=== PATIENT | male | born 1955 | race Hispanic/Latino ===

== ENCOUNTER 2017-11-08 11:42 | Emergency (ER) | payer OTHER ==
[~2017-11-08 11:42] MED LIST: ASPI-1197 PO; CALC600T12 PO; CHOL100040 PO; FENT-77 TD; LISI1TAB11 PO; METO25TA6 PO; MULT-60 PO; SIMV10TA6 PO; TYL3B PO
[2017-11-08] MEDS ORDERED: ONDANSETRON HCL 4 MG/2 ML VIAL ONE (12:10)
[2017-11-08] MEDS ORDERED: MORPHINE SULFATE 4 MG/1ML SYG ONE (12:10)
== END 2017-11-08 15:15 | disposition home or self-care (01) ==
LOC: EDH 11:42
DX: M54.2 Cervicalgia (principal); R07.89 Other chest pain; M25.512 Pain in left shoulder; J44.9 Chronic obstructive pulmonary disease, unspecified; I10 Essential (primary) hypertension; G89.29 Other chronic pain; M54.9 Dorsalgia, unspecified; V49.49XA Driver injured in collision with other motor vehicles in traffic accident, initial encounter; Y93.89 Activity, other specified; Y92.89 Other specified places as the place of occurrence of the external cause; Y99.8 Other external cause status
CPT/HCPCS: 70450; 71250; 72125; 72170; 73030; 96374; 96375; 99284; J2270; J2405

== ENCOUNTER 2017-12-29 14:46 | Inpatient (IN) | payer OTHER ==
[~2017-12-29] VITALS: Ht 177.8 cm; Wt 91.8 kg
[2017-12-29] MEDS ORDERED: ACETAMINOPHEN 325 MG TAB ONE (15:29)
[2017-12-29 15:36] LABS: BASOPHILS % (AUTO) 0.6 % (0.0-5.0); EOSINOPHILS % (AUTO) 0.8 % (0.0-8.0); HEMATOCRIT 40.9 % (42-54); LYMPHOCYTES % (AUTO) 11.4 % (21.0-51.0); MEAN CORPUSCULAR HEMOGLOBIN 30.1 pg (27.0-33.0); MEAN CORPUSCULAR HGB CONC 33.8 g/dL (32.0-36.0); MEAN CORPUSCULAR VOLUME 89.1 fL (79-99); NEUTROPHILS % (AUTO) 81.2 % (40.0-77.0); PLATELET COUNT (AUTO) 225 K/uL (130-400); RED BLOOD CELL COUNT(AUTO) 4.59 MIL/uL (4.50-6.20); RED CELL DISTRIBUTION WIDTH 15.9 % (11.0-15.5); WHITE BLOOD COUNT (AUTO) 13.3 K/uL (4.8-10.8)
[2017-12-29 15:49] LABS: CREATININE 1.1 mg/dL (0.5-1.5); POTASSIUM 3.7 mmol/L (3.5-5.1)
[2017-12-29 15:53] LABS: ALBUMIN 3.8 g/dL (3.5-5.0); BILIRUBIN,TOTAL 0.5 mg/dL (0.2-1.0); TOTAL PROTEIN, SERUM 7.6 g/dL (6.0-8.3)
[2017-12-29 16:02] LABS: APPEARANCE,URINE Clear (CLEAR); BILIRUBIN,URINE Negative (NEGATIVE); COLOR,URINE Yellow (YELLOW); GLUCOSE, URINE (UA) Negative (NEGATIVE); KETONES,URINE Negative (NEGATIVE); LEUKOCYTE ESTERASE ,URINE Negative (NEGATIVE); NITRATE,URINE Negative (NEGATIVE); OCCULT BLOOD,URINE Negative (NEGATIVE); PROTEIN,URINE POS 2+ (NEGATIVE)
[2017-12-29 16:22] LABS: BACTERIA,URINE None Seen /HPF (None Seen); RBC,URINE None Seen /HPF (0-1); SQUAMOUS EPITHELIAL CELL,UR 0-2 /LPF (0-2); WBC,URINE None Seen /HPF (0-1)
[2017-12-29] MEDS ORDERED: CEFTRIAXONE SODIUM 1 GM ONE (17:33)
[2017-12-29] MEDS ORDERED: AZITHROMYCIN 250 MG TABLET PO ONE (17:34)
[2017-12-29] MEDS ORDERED: IPRATROPIUM/ALBUTEROL SULFATE 3 ML SOLUTION IH ONE (19:50)
[2017-12-29] MEDS ORDERED: ONDANSETRON HCL 4 MG/2 ML VIAL IVP PRN (20:15)
[2017-12-29] MEDS ORDERED: LACTULOSE 20 GM/30 ML UDCUP PO PRN (20:15)
[2017-12-29] MEDS ORDERED: CLONIDINE HCL 0.1 MG TABLET PO PRN (20:15)
[2017-12-29] MEDS ORDERED: ACETAMINOPHEN 325 MG TAB PO PRN ×2 (20:15)
[2017-12-29] MEDS ORDERED: DOXYCYCLINE 100MG+NS 250ML 250 ML IV ONE (21:55)
[2017-12-29] MEDS: IPRATROPIUM/ALBUTEROL SULFATE 3 ML SOLUTION IH SCH (22:44)
[2017-12-30] MEDS ORDERED: ACETAMINOPHEN 325 MG TAB ONE ×3 (01:58→15:09)
[2017-12-30] MEDS: IPRATROPIUM/ALBUTEROL SULFATE 3 ML SOLUTION IH SCH ×6 (02:17→22:15)
[2017-12-30 05:08] LABS: BASOPHILS % (AUTO) 0.3 % (0.0-5.0); EOSINOPHILS % (AUTO) 0.1 % (0.0-8.0); HEMATOCRIT 39.3 % (42-54); LYMPHOCYTES % (AUTO) 11.8 % (21.0-51.0); MEAN CORPUSCULAR HEMOGLOBIN 30.6 pg (27.0-33.0); MEAN CORPUSCULAR HGB CONC 34.2 g/dL (32.0-36.0); MEAN CORPUSCULAR VOLUME 89.5 fL (79-99); NEUTROPHILS % (AUTO) 79.8 % (40.0-77.0); NUCLEATED RED BLOOD CELLS 0.1 % (0.0-0.19); PLATELET COUNT (AUTO) 212 K/uL (130-400); RED BLOOD CELL COUNT(AUTO) 4.39 MIL/uL (4.50-6.20); WHITE BLOOD COUNT (AUTO) 13.6 K/uL (4.8-10.8)
[2017-12-30 05:27] LABS: CREATININE 1.1 mg/dL (0.5-1.5); POTASSIUM 3.6 mmol/L (3.5-5.1)
[2017-12-30 09:47] VITALS: BP 141/69
[2017-12-30] MEDS ORDERED: DOXYCYCLINE 100MG+NS 250ML 250 ML IV ONE (13:07)
[2017-12-30] MEDS ORDERED: DEXTROSE 50%-WATER 50 ML DISP.SYRIN IV PRN (17:30)
[2017-12-30] MEDS ORDERED: NITROGLYCERIN 0.4 MG SL TAB SL PRN (17:30)
[2017-12-30] MEDS ORDERED: LIDOCAINE HCL-MPF 1% 2ML VIAL IJ PRN (17:30)
[2017-12-30] MEDS ORDERED: POTASSIUM CHLORIDE 10% ELIXIR 20 MEQ/15 ML UDCUP PO PRN (17:30)
[2017-12-30] MEDS ORDERED: POTASSIUM CHLORIDE 20MEQ/100ML 100 ML IV PRN (17:30)
[2017-12-30] MEDS ORDERED: GLUCAGON 1MG KIT 1 MG ML IM PRN (17:30)
[2017-12-30] MEDS ORDERED: POTASSIUM CHLORIDE 20 MEQ ERTAB PO PRN (17:30)
[2017-12-30] MEDS ORDERED: GUAIFENESIN-DM 200/20 MG 10 ML PO PRN (17:30)
[2017-12-30] MEDS ORDERED: INSULIN R NPO SS1 SQ SCH (18:00)
[2017-12-30] MEDS ORDERED: IPRATROPIUM/ALBUTEROL SULFATE 3 ML SOLUTION IH SCH (18:00)
[2017-12-30] MEDS ORDERED: ONDANSETRON HCL MDV 20ML 2 MG/ML VIAL IVP PRN (19:00)
[2017-12-30 19:58] VITALS: BP 121/72
[2017-12-30] MEDS: DOXYCYCLINE 100MG+NS 250ML 250 ML IV SCH (20:08)
[2017-12-30] MEDS: METHYLPREDNISOLONE SOD SUCC 40MG/ML 1ML IVP SCH (20:08)
[2017-12-30] MEDS ORDERED: INSULIN R PO SSI SQ SCH (21:00)
[2017-12-31] VITALS: BP 143/85
[2017-12-31] MEDS: IPRATROPIUM/ALBUTEROL SULFATE 3 ML SOLUTION IH SCH ×6 (01:55→22:04)
[2017-12-31 04:00] VITALS: BP 131/71
[2017-12-31 04:52] LABS: HEMATOCRIT 39.3 % (42-54); MEAN CORPUSCULAR HGB CONC 33.5 g/dL (32.0-36.0); MEAN CORPUSCULAR VOLUME 89.4 fL (79-99); PLATELET COUNT (AUTO) 220 K/uL (130-400); RED BLOOD CELL COUNT(AUTO) 4.39 MIL/uL (4.50-6.20); WHITE BLOOD COUNT (AUTO) 7.9 K/uL (4.8-10.8)
[2017-12-31 05:03] LABS: CREATININE 1.2 mg/dL (0.5-1.5)
[2017-12-31] MEDS: METHYLPREDNISOLONE SOD SUCC 40MG/ML 1ML IVP SCH (08:04)
[2017-12-31] MEDS: DOXYCYCLINE 100MG+NS 250ML 250 ML IV SCH ×2 (08:04→21:19)
[2017-12-31 08:05] VITALS: BP 139/76
[2017-12-31 11:00] VITALS: BP 142/71
[2017-12-31 16:00] VITALS: BP 153/90
[2017-12-31 20:00] VITALS: BP 148/78
[2018-01-01] VITALS (7 sets, daily range): BP systolic 122–149; BP diastolic 63–85
[2018-01-01] MEDS: IPRATROPIUM/ALBUTEROL SULFATE 3 ML SOLUTION IH SCH ×6 (02:21→21:59)
[2018-01-01] MEDS: PREDNISONE 20 MG TABLET PO SCH (07:43)
[2018-01-01] MEDS: DOXYCYCLINE 100MG+NS 250ML 250 ML IV SCH ×2 (07:44→21:53)
[2018-01-02] MEDS: IPRATROPIUM/ALBUTEROL SULFATE 3 ML SOLUTION IH SCH ×2 (02:02→06:46)
[2018-01-02 04:00] VITALS: BP 136/85
[2018-01-02] MEDS: PREDNISONE 20 MG TABLET PO SCH (07:40)
[2018-01-02] MEDS: DOXYCYCLINE 100MG+NS 250ML 250 ML IV SCH (07:40)
[2018-01-02 08:00] VITALS: BP 142/94
== END 2018-01-02 11:35 | disposition home or self-care (01) | DRG 191 ==
LOC: EDH 14:46 → EDHIP 17:15 → OBSVTOIN 17:15 → 3CH 12-30 16:35
PROVIDERS: ADMIT Family Medicine; ATTEND Family Medicine
DX: J44.1 Chronic obstructive pulmonary disease with (acute) exacerbation (principal); J96.10 Chronic respiratory failure, unspecified whether with hypoxia or hypercapnia; Z99.81 Dependence on supplemental oxygen; Z85.118 Personal history of other malignant neoplasm of bronchus and lung; E78.5 Hyperlipidemia, unspecified; I10 Essential (primary) hypertension; E66.9 Obesity, unspecified; D72.829 Elevated white blood cell count, unspecified; G47.33 Obstructive sleep apnea (adult) (pediatric); I25.10 Atherosclerotic heart disease of native coronary artery without angina pectoris; G89.29 Other chronic pain; M54.9 Dorsalgia, unspecified; Z68.29 Body mass index [BMI] 29.0-29.9, adult; Z87.891 Personal history of nicotine dependence; Z92.21 Personal history of antineoplastic chemotherapy; Z92.3 Personal history of irradiation; Z95.1 Presence of aortocoronary bypass graft; Z88.8 Allergy status to other drugs, medicaments and biological substances
CPT/HCPCS: 36415; 71046; 71250; 80048; 80053; 81001; 83605; 83880; 84484; 85025; 85027; 87040; 87804; 93005; 94640; 94664; J0696; J2920; J3490

== ENCOUNTER 2019-03-30 16:02 | Inpatient (IN) | payer OTHER ==
[~2019-03-30] VITALS: Ht 177.8 cm; Wt 107.3 kg
[~2019-03-30 16:02] MED LIST changes: -ALBU8.5H8 IH; -APIX5TAB PO; -ASPI-555 PO; -CHOL200074 PO; -FINA5TAB41 PO; -FLUT1BLS3 IH; -FURO20TA4 PO; -MULT-1192 PO; -POTA-79 PO; -TAMS-1 PO; -moringa PO
[2019-03-30 16:44] LABS: BASOPHILS % (AUTO) 0.7 % (0.0-5.0); HEMATOCRIT 40.5 % (42-54); LYMPHOCYTES % (AUTO) 24.5 % (21.0-51.0); MEAN CORPUSCULAR HEMOGLOBIN 31.7 pg (27.0-33.0); MEAN CORPUSCULAR HGB CONC 34.3 g/dL (32.0-36.0); MEAN CORPUSCULAR VOLUME 92.4 fL (79-99); MONOCYTES % (AUTO) 8.9 % (3.0-13.0); NEUTROPHILS % (AUTO) 60.9 % (40.0-77.0); NUCLEATED RED BLOOD CELLS 0.1 % (0.0-0.19); PLATELET COUNT (AUTO) 258 K/uL (130-400); RED BLOOD CELL COUNT(AUTO) 4.38 MIL/uL (4.50-6.20); RED CELL DISTRIBUTION WIDTH 13.7 % (11.0-15.5); WHITE BLOOD COUNT (AUTO) 5.8 K/uL (4.8-10.8)
[2019-03-30 16:58] LABS: POTASSIUM 3.4 mmol/L (3.5-5.1)
[2019-03-30 17:00] LABS: INR 0.95 (0.85-1.15); PARTIAL THROMBOPLASTIN TIME 26.4 SEC (26.3-35.5)
[2019-03-30 17:04] LABS: ALBUMIN 4.1 g/dL (3.5-5.0); BILIRUBIN,TOTAL 0.4 mg/dL (0.2-1.0); TOTAL PROTEIN, SERUM 7.4 g/dL (6.0-8.3)
[2019-03-30] MEDS ORDERED: ENOXAPARIN SODIUM 100 MG/1 ML SQ ONE (18:00)
[2019-03-30] MEDS ORDERED: POTASSIUM CHLORIDE 20MEQ/100ML 100 ML IV PRN (18:45)
[2019-03-30] MEDS ORDERED: ONDANSETRON HCL 4 MG/2 ML VIAL IV PRN (18:45)
[2019-03-30] MEDS ORDERED: LIDOCAINE HCL-MPF 1% 2ML VIAL IVP PRN (18:45)
[2019-03-30] MEDS ORDERED: HYDROCODONE/ACETAMINOPHEN 5/325 MG TAB PO PRN (18:45)
[2019-03-30] MEDS ORDERED: POTASSIUM CHLORIDE 10% ELIXIR 20 MEQ/15 ML UDCUP PO PRN (18:45)
[2019-03-30] MEDS ORDERED: NITROGLYCERIN 0.4 MG SL TAB SL PRN (18:45)
[2019-03-30] MEDS ORDERED: MAGNESIUM 2GM PREMIX 50ML 50 ML IV PRN (18:45)
[2019-03-30] MEDS ORDERED: ACETAMINOPHEN 325 MG TAB PO PRN ×2 (18:45)
[2019-03-30 20:40] VITALS: BP 139/85
--- NOTE | 2019-03-30 20:45 | NUR ---
ADDENDUM TO ASS. BILATERAL LE'S WITH PRONOUNCED HYPERPIGMENTED AREAS COVERING DISTAL 2/3RDS OF BOTH LOWER EXTREMITIES WITH MARKED EDEMA ,RIGHT GREATER THAN LEFT (3+ LEFT),(2+RIGHT)PITTING EDEMA. PT STATES INTERMITTENT CRAMPING ,NUMBNESS AND THROBBING PAIN TO LEFT LE, DRY LESIONS ,SCAB FORMATION NOTED LOWER 1/3 LE POSTERIORLY Addendum: 03/31/19 at 0058 by NICOLASA TRAYLOR RN RN Amended: Links added.
[2019-03-30] MEDS: FAMOTIDINE 20MG TAB 20 MG TAB PO SCH (20:57)
[2019-03-30] MEDS ORDERED: ENOXAPARIN SODIUM 1 MG/KG SQ SCH (21:00)
--- NOTE | 2019-03-30 21:37 | NUR ---
Pt and stated he wears a Cpap at home but when asked if wanted to use one of ours, he informed me that he would rather forego the Cpap tonight and use his own tomorrow when they bring it in the morning.
[2019-03-31] VITALS: BP 115/67
[2019-03-31] MEDS: POTASSIUM CHLORIDE 20 MEQ ERTAB PO PRN ×2 (00:10→02:31)
[2019-03-31 04:00] VITALS: BP 118/70
[2019-03-31 04:36] LABS: INR 0.98 (0.85-1.15); PARTIAL THROMBOPLASTIN TIME 28.7 SEC (26.3-35.5); PROTHROMBIN TIME 10.3 SEC (9.6-11.6)
[2019-03-31 04:37] LABS: BASOPHILS % (AUTO) 0.8 % (0.0-5.0); EOSINOPHILS % (AUTO) 5.4 % (0.0-8.0); HEMATOCRIT 38.4 % (42-54); LYMPHOCYTES % (AUTO) 25.6 % (21.0-51.0); MEAN CORPUSCULAR HEMOGLOBIN 30.7 pg (27.0-33.0); MEAN CORPUSCULAR HGB CONC 33.4 g/dL (32.0-36.0); MEAN CORPUSCULAR VOLUME 92.1 fL (79-99); MONOCYTES % (AUTO) 9.1 % (3.0-13.0); NEUTROPHILS % (AUTO) 59.1 % (40.0-77.0); NUCLEATED RED BLOOD CELLS 0.1 % (0.0-0.19); PLATELET COUNT (AUTO) 262 K/uL (130-400); RED BLOOD CELL COUNT(AUTO) 4.17 MIL/uL (4.50-6.20); RED CELL DISTRIBUTION WIDTH 13.7 % (11.0-15.5)
[2019-03-31 04:45] LABS: ALBUMIN 3.3 g/dL (3.5-5.0); BILIRUBIN,TOTAL 0.3 mg/dL (0.2-1.0); CREATININE 0.9 mg/dL (0.5-1.5); POTASSIUM 3.9 mmol/L (3.5-5.1); TOTAL PROTEIN, SERUM 6.1 g/dL (6.0-8.3)
[2019-03-31 08:00] VITALS: BP 130/80
[2019-03-31] MEDS: FAMOTIDINE 20MG TAB 20 MG TAB PO SCH ×2 (10:36→20:30)
[2019-03-31] MEDS: ENOXAPARIN SODIUM 100 MG/1 ML SQ SCH ×2 (10:37→20:31)
[2019-03-31] MEDS ORDERED: CHOL200074 PO (11:07)
[2019-03-31] MEDS ORDERED: TAMS-1 PO (11:07)
[2019-03-31] MEDS ORDERED: ASPI-555 PO (11:07)
[2019-03-31] MEDS ORDERED: FINA5TAB41 PO (11:07)
[2019-03-31] MEDS ORDERED: FLUT1BLS3 IH (11:07)
[2019-03-31] MEDS ORDERED: POTA-79 PO (11:07)
[2019-03-31] MEDS ORDERED: ALBU8.5H8 IH (11:07)
[2019-03-31] MEDS ORDERED: MULT-1192 PO (11:07)
[2019-03-31] MEDS ORDERED: moringa PO (11:07)
[2019-03-31] MEDS ORDERED: FURO20TA4 PO (11:07)
[2019-03-31 12:00] VITALS: BP 131/72
[2019-03-31 16:00] VITALS: BP 135/83
--- NOTE | 2019-03-31 16:00 | NUR ---
PAGED DR. MONTE SHEERIF TO VERIFY THAT HE IS AWARE OF THE CARDIOLOGY CONSULT. WAITING FOR CALL BACK.
--- NOTE | 2019-03-31 17:13 | NUR ---
D/C PLAN cm spoke to pt regarding d/c planning. Pt lives with spouse. States spouse assists in care as needed. Pt has wk, cane, home o2, cpap, and nebulizer at home. Plan to home CM to f/u Addendum: 03/31/19 at 1715 by FAM ANGUIANO CM Amended: Links added.
--- NOTE | 2019-03-31 18:16 | NUR ---
DR. MONTE SHEAMANDAF CALLED BACK. STATED HE WASN'T AWARE OF THE CONSULT, BUT HE WILL SEE THE PATIENT TOMORROW. NO NEW ORDERS RECEIVED.
[2019-03-31] MEDS: IPRATROPIUM/ALBUTEROL SULFATE 3 ML SOLUTION IH PRN (18:17)
[2019-03-31 19:45] VITALS: BP 130/71
[2019-04-01] VITALS (7 sets, daily range): BP systolic 80–139; BP diastolic 62–91
[2019-04-01] MEDS: IPRATROPIUM/ALBUTEROL SULFATE 3 ML SOLUTION IH PRN ×2 (06:11→18:49)
[2019-04-01 06:28] LABS: BASOPHILS % (AUTO) 0.8 % (0.0-5.0); EOSINOPHILS % (AUTO) 5.5 % (0.0-8.0); HEMATOCRIT 39.6 % (42-54); LYMPHOCYTES % (AUTO) 27.3 % (21.0-51.0); MEAN CORPUSCULAR HEMOGLOBIN 31.2 pg (27.0-33.0); MEAN CORPUSCULAR HGB CONC 33.5 g/dL (32.0-36.0); MEAN CORPUSCULAR VOLUME 93.2 fL (79-99); MONOCYTES % (AUTO) 9.4 % (3.0-13.0); NUCLEATED RED BLOOD CELLS 0.1 % (0.0-0.19); PLATELET COUNT (AUTO) 244 K/uL (130-400); RED BLOOD CELL COUNT(AUTO) 4.25 MIL/uL (4.50-6.20); RED CELL DISTRIBUTION WIDTH 13.8 % (11.0-15.5); WHITE BLOOD COUNT (AUTO) 4.5 K/uL (4.8-10.8)
[2019-04-01 06:44] LABS: CREATININE 0.9 mg/dL (0.5-1.5); POTASSIUM 3.8 mmol/L (3.5-5.1)
[2019-04-01] MEDS: **HM** VIT D3 2000 UNITS PO SCH (09:00)
[2019-04-01] MEDS: LISINOPRIL 20 MG TABLET PO SCH (09:30)
[2019-04-01] MEDS: FAMOTIDINE 20MG TAB 20 MG TAB PO SCH ×2 (09:30→21:39)
[2019-04-01] MEDS: HYDROCHLOROTHIAZIDE 25 MG TABLET PO SCH (09:30)
[2019-04-01] MEDS: MULTIVITAMIN TABLET PO SCH (09:30)
[2019-04-01] MEDS: ASPIRIN 81MG TAB.CHEW PO SCH (09:30)
[2019-04-01] MEDS: POTASSIUM CHLORIDE 20 MEQ ERTAB PO SCH (09:31)
[2019-04-01] MEDS: FINASTERIDE 5 MG TABLET PO SCH (09:31)
[2019-04-01] MEDS: FUROSEMIDE 20 MG TABLET PO SCH (09:31)
[2019-04-01] MEDS: METOPROLOL TARTRATE 25 MG TAB PO SCH ×2 (09:31→21:39)
[2019-04-01] MEDS: ENOXAPARIN SODIUM 100 MG/1 ML SQ SCH ×2 (09:32→21:39)
[2019-04-01] MEDS: HYDROCODONE/ACETAMINOPHEN 5/325 MG TAB PO PRN ×2 (09:59→19:12)
[2019-04-01] MEDS: TAMSULOSIN HCL 0.4 MG CAP.ER.24H PO SCH (21:39)
[2019-04-01] MEDS: SIMVASTATIN 10 MG TABLET PO SCH (21:39)
[2019-04-02 04:00] VITALS: BP 103/64
[2019-04-02 05:52] LABS: EOSINOPHILS % (AUTO) 5.3 % (0.0-8.0); HEMATOCRIT 38.7 % (42-54); LYMPHOCYTES % (AUTO) 31.9 % (21.0-51.0); MEAN CORPUSCULAR HEMOGLOBIN 30.3 pg (27.0-33.0); MEAN CORPUSCULAR HGB CONC 32.9 g/dL (32.0-36.0); MEAN CORPUSCULAR VOLUME 92.3 fL (79-99); MONOCYTES % (AUTO) 9.1 % (3.0-13.0); NEUTROPHILS % (AUTO) 52.7 % (40.0-77.0); PLATELET COUNT (AUTO) 271 K/uL (130-400); RED CELL DISTRIBUTION WIDTH 13.6 % (11.0-15.5); WHITE BLOOD COUNT (AUTO) 4.9 K/uL (4.8-10.8)
[2019-04-02 06:06] LABS: CREATININE 0.9 mg/dL (0.5-1.5); POTASSIUM 3.9 mmol/L (3.5-5.1)
[2019-04-02 06:27] LABS: INR 0.98 (0.85-1.15); PROTHROMBIN TIME 10.3 SEC (9.6-11.6)
[2019-04-02] MEDS: IPRATROPIUM/ALBUTEROL SULFATE 3 ML SOLUTION IH PRN ×2 (06:52→18:53)
[2019-04-02 08:00] VITALS: BP 117/76
[2019-04-02] MEDS: MULTIVITAMIN TABLET PO SCH (08:54)
[2019-04-02] MEDS: ASPIRIN 81MG TAB.CHEW PO SCH (08:54)
[2019-04-02] MEDS: METOPROLOL TARTRATE 25 MG TAB PO SCH ×2 (08:54→21:07)
[2019-04-02] MEDS: FAMOTIDINE 20MG TAB 20 MG TAB PO SCH ×2 (08:54→21:07)
[2019-04-02] MEDS: LISINOPRIL 20 MG TABLET PO SCH (08:55)
[2019-04-02] MEDS: FUROSEMIDE 20 MG TABLET PO SCH (08:55)
[2019-04-02] MEDS: HYDROCHLOROTHIAZIDE 25 MG TABLET PO SCH (08:55)
[2019-04-02] MEDS: POTASSIUM CHLORIDE 20 MEQ ERTAB PO SCH (08:58)
[2019-04-02] MEDS: HYDROCODONE/ACETAMINOPHEN 5/325 MG TAB PO PRN ×2 (08:59→21:44)
[2019-04-02] MEDS: FINASTERIDE 5 MG TABLET PO SCH (09:00)
[2019-04-02] MEDS: **HM** VIT D3 2000 UNITS PO SCH (09:00)
[2019-04-02] MEDS: ENOXAPARIN SODIUM 100 MG/1 ML SQ SCH (09:04)
[2019-04-02 11:00] VITALS: BP 134/79
--- NOTE | 2019-04-02 15:36 | NUR ---
RD Notification Pt tolerating Heart healthy diet with no report of GI distress and PO intake at 100%. Pt LBM 03/31/19. Pt monitored labs: Glu 120, Ca 8.4, Alb 3.3. Note LLE 2+ Pitting edema, RLE 1+ non-pitting edema. RD to continue to monitor. Please notify RD as additional nutrition concerns arise. Thank you. Addendum: 04/02/19 at [address] RD Amended: Links added.
[2019-04-02 16:00] VITALS: BP 96/58
[2019-04-02 19:56] VITALS: BP 130/64
[2019-04-02] MEDS: APIXABAN 5 MG TABLET PO SCH (21:07)
[2019-04-02] MEDS: SIMVASTATIN 10 MG TABLET PO SCH (21:07)
[2019-04-02] MEDS: TAMSULOSIN HCL 0.4 MG CAP.ER.24H PO SCH (21:07)
[2019-04-02 23:45] VITALS: BP 135/80
[2019-04-03 04:02] VITALS: BP 140/76
[2019-04-03] MEDS: IPRATROPIUM/ALBUTEROL SULFATE 3 ML SOLUTION IH PRN (06:54)
--- NOTE | 2019-04-03 07:48 | NUR ---
DR WILDE ROUNDED AND SPOKE WITH THE PATIENT ABOUT POC. MD WILL COMMUNICATE WITH ATTENDING REGARDING DISCHARGE PLANNING.
[2019-04-03 08:00] VITALS: BP 145/62
[2019-04-03] MEDS: **HM** VIT D3 2000 UNITS PO SCH (08:58)
[2019-04-03] MEDS: ASPIRIN 81MG TAB.CHEW PO SCH (09:01)
[2019-04-03] MEDS: FAMOTIDINE 20MG TAB 20 MG TAB PO SCH (09:01)
[2019-04-03] MEDS: APIXABAN 5 MG TABLET PO SCH (09:01)
[2019-04-03] MEDS: MULTIVITAMIN TABLET PO SCH (09:02)
[2019-04-03] MEDS: METOPROLOL TARTRATE 25 MG TAB PO SCH (09:02)
[2019-04-03] MEDS: FUROSEMIDE 20 MG TABLET PO SCH (09:04)
[2019-04-03] MEDS: POTASSIUM CHLORIDE 20 MEQ ERTAB PO SCH (09:05)
[2019-04-03] MEDS: LISINOPRIL 20 MG TABLET PO SCH (09:05)
[2019-04-03] MEDS: HYDROCHLOROTHIAZIDE 25 MG TABLET PO SCH (09:06)
[2019-04-03] MEDS: FINASTERIDE 5 MG TABLET PO SCH (09:11)
[2019-04-03] MEDS ORDERED: APIX5TAB PO (10:36)
[2019-04-03 11:59] VITALS: BP 117/61
[2019-04-03 12:30] VITALS: BP_SYST 113; BP_SYST 131; BP_DIAS 64; BP_DIAS 78
[2019-04-03 12:31] VITALS: BP 130/76
--- NOTE | 2019-04-03 15:40 | NUR ---
DISCHARGE INSTRUCTIONS REVIEWED WITH THE PATIENT WITH THE NEW PRESCRIPTION AND FOLLOW-UP APPOINTMENT THAT HAVE BEEN SCHEDULED FOR HIM AND HE RETURNED GOOD UNDERSTANDING. HIS QUESTIONS WERE ANSWERED AND EDUCATION WAS GIVEN TO HIM ON ELIQUIS AND BLEEDING PRECAUTION. PATIENT REPORTED THAT HIS WILL COME TO PICK HIM UP LATER ON.
--- NOTE | 2019-04-03 16:24 | NUR ---
SPOUSE CAME TO PICK-UP THE PATIENT AND HE EXITED THE UNIT STABLE VIA W/C ACCOMPANIED BY HIS AND GRAND CHILDREN.
== END 2019-04-03 16:00 | disposition home or self-care (01) | DRG 300 ==
LOC: EDH 16:02 → EDHIP 18:36 → 3BH 20:28
PROVIDERS: ADMIT Internal Medicine; ATTEND Internal Medicine
DX: I82.431 Acute embolism and thrombosis of right popliteal vein (principal); D68.59 Other primary thrombophilia; M79.89 Other specified soft tissue disorders; E87.6 Hypokalemia; E66.9 Obesity, unspecified; I73.9 Peripheral vascular disease, unspecified; I25.5 Ischemic cardiomyopathy; G89.29 Other chronic pain; Z68.33 Body mass index [BMI] 33.0-33.9, adult; E78.5 Hyperlipidemia, unspecified; G47.33 Obstructive sleep apnea (adult) (pediatric); I10 Essential (primary) hypertension; I25.10 Atherosclerotic heart disease of native coronary artery without angina pectoris; I87.2 Venous insufficiency (chronic) (peripheral); I87.8 Other specified disorders of veins; J44.9 Chronic obstructive pulmonary disease, unspecified; Z95.1 Presence of aortocoronary bypass graft; Z92.3 Personal history of irradiation; Z92.21 Personal history of antineoplastic chemotherapy; Z85.118 Personal history of other malignant neoplasm of bronchus and lung; Z98.42 Cataract extraction status, left eye; Z98.41 Cataract extraction status, right eye; Z83.3 Family history of diabetes mellitus; Z82.5 Family history of asthma and other chronic lower respiratory diseases; Z82.49 Family history of ischemic heart disease and other diseases of the circulatory system; Z82.3 Family history of stroke; Z82.0 Family history of epilepsy and other diseases of the nervous system; Z80.7 Family history of other malignant neoplasms of lymphoid, hematopoietic and related tissues
CPT/HCPCS: 36415; 80048; 80053; 83735; 85025; 85610; 85730; 93005; 93970; 94640; 94664; G0378; J1650

== ENCOUNTER → 2019-03-30 | Outpatient (CLI) | payer OTHER ==
[~2019-03-30] MED LIST changes: +ALBU8.5H8 IH; +APIX5TAB PO; +ASPI-555 PO; +CHOL200074 PO; -FENT-77 TD; +FINA5TAB41 PO; +FLUT1BLS3 IH; +FURO20TA4 PO; +MULT-1192 PO; +POTA-79 PO; +TAMS-1 PO; -TYL3B PO; +moringa PO
== END | disposition home or self-care (01) ==
LOC: RAH 13:13
PROVIDERS: ATTEND Internal Medicine Cardiovascular Disease
DX: I82.431 Acute embolism and thrombosis of right popliteal vein (principal); I87.2 Venous insufficiency (chronic) (peripheral)
CPT/HCPCS: 93970

== ENCOUNTER → 2019-05-04 | Outpatient (CLI) | payer OTHER ==
[~2019-05-04] MED LIST changes: +ALBU8.5H8 IH; +APIX5TAB PO; -ASPI-1197 PO; +ASPI-555 PO; -CALC600T12 PO; -CHOL100040 PO; +CHOL200074 PO; +FINA5TAB41 PO; +FLUT1BLS3 IH; +FURO20TA4 PO; +MULT-1192 PO; -MULT-60 PO; +POTA-79 PO; +TAMS-1 PO; +moringa PO
== END | disposition home or self-care (01) ==
LOC: SHCH 08:12
PROVIDERS: ATTEND Internal Medicine Cardiovascular Disease
DX: I35.8 Other nonrheumatic aortic valve disorders (principal); I11.9 Hypertensive heart disease without heart failure
CPT/HCPCS: 93306

== ENCOUNTER → 2019-05-10 | Outpatient (CLI) | payer OTHER | END | disposition home or self-care (01) | LOC: SHCH 08:30 | PROVIDERS: ATTEND Internal Medicine Cardiovascular Disease | DX: I65.23 Occlusion and stenosis of bilateral carotid arteries (principal); I71.4 Abdominal aortic aneurysm, without rupture | CPT/HCPCS: 93880; 93978 ==

== ENCOUNTER → 2019-06-25 | Outpatient (CLI) | payer OTHER ==
[~2019-06-25] MED LIST changes: -LISI1TAB11 PO; +LISI1TAB28 PO
== END | disposition home or self-care (01) ==
LOC: SHCH 09:06
PROVIDERS: ATTEND Internal Medicine Cardiovascular Disease
DX: I87.2 Venous insufficiency (chronic) (peripheral) (principal); I87.8 Other specified disorders of veins
CPT/HCPCS: 93970

== ENCOUNTER → 2019-08-30 | Outpatient (CLI) | payer OTHER ==
[~2019-08-30] VITALS: Ht 177.8 cm; Wt 106.6 kg
[~2019-08-30] MED LIST changes: +REGADENOSON 0.4 MG/5 ML PF SYG IVP SCH; -SIMV10TA6 PO; +SIMV10TA97 PO
== END | disposition home or self-care (01) ==
LOC: SHCH 08:49
PROVIDERS: ATTEND Internal Medicine Cardiovascular Disease
DX: I25.810 Atherosclerosis of coronary artery bypass graft(s) without angina pectoris (principal)
CPT/HCPCS: 78452; 93017; 96374; A9500 ×2; J2785

== ENCOUNTER → 2019-10-01 | Outpatient (CLI) | payer OTHER ==
[~2019-10-01] MED LIST changes: -REGADENOSON 0.4 MG/5 ML PF SYG IVP SCH
== END | disposition home or self-care (01) ==
LOC: SHCH 09:21
PROVIDERS: ATTEND Internal Medicine Cardiovascular Disease
DX: I82.4Z2 Acute embolism and thrombosis of unspecified deep veins of left distal lower extremity (principal); Z09 Encounter for follow-up examination after completed treatment for conditions other than malignant neoplasm
CPT/HCPCS: 93971

== ENCOUNTER → 2020-05-19 | Outpatient (CLI) | payer OTHER ==
[~2020-05-19] MED LIST changes: -ASPI-555 PO; +ASPI-556 PO; -LISI1TAB28 PO; +LISI1TAB51 PO
== END | disposition home or self-care (01) ==
LOC: SHCH 09:00
PROVIDERS: ATTEND Internal Medicine Cardiovascular Disease
DX: I51.7 Cardiomegaly (principal); R01.1 Cardiac murmur, unspecified; I71.4 Abdominal aortic aneurysm, without rupture
CPT/HCPCS: 93306; 93978